=== PATIENT | male | born 1960 | race Two or more races ===

== ENCOUNTER 2020-03-02 14:09 | Outpatient (CLI) | payer MEDICARE, MEDICAID ==
[~2020-03-02] VITALS: Ht 167.6 cm; Wt 71.2 kg
[2020-03-02 14:21] VITALS: BP 134/80
--- NOTE | 2020-03-02 17:30 | Consultation ---
DATE OF CONSULTATION: 03/02/2020 CONSULTING PHYSICIAN: Fabio Barber MD REFERRING PHYSICIAN: Jonel Saleh MD REASON FOR REFERRAL: Screening colonoscopy, evaluation of also chronic GERD. PAST MEDICAL HISTORY: 1. GERD. 2. Hypercholesteremia. 3. BPH. 4. Hypertension. PAST SURGICAL HISTORY: Right wrist surgery and left leg surgeries. MEDICATIONS: Please see medication reconciliation list. FAMILY HISTORY: No family history of GI malignancies. SOCIAL HISTORY: Patient denies any tobacco, alcohol, or drug abuse. REVIEW OF SYSTEMS: A 10-point review of systems was performed and positive for chronic GERD. PHYSICAL EXAMINATION: VITAL SIGNS: Temperature 98.4, blood pressure 134/80, pulse 60, respirations 20. HEENT: Normocephalic, atraumatic. Sclerae anicteric. NECK: Supple. No evidence of obvious lymphadenopathy. CARDIOVASCULAR: Regular rate and rhythm. Plus S1-S2. LUNGS: Clear to auscultation bilaterally. ABDOMEN: Positive bowel sounds. Soft and nontender. No rebound. No guarding. No peritoneal sign. EXTREMITIES: No cyanosis, no clubbing, no edema. ASSESSMENT AND PLAN: This is a 59-year-old male with chronic GERD, also referral for screening colonoscopy. Plan for EGD and colonoscopy. Patient was informed of the risks and benefits of procedure. The prep was explained to him. We will schedule him for this month. I want to thank, Dr. Saleh for this kind referral. Fabio Barber M.D. DR: DEREK JOB#: [id number] CC: Jonel Saleh MD
== END 2020-03-02 16:09 | disposition home or self-care (01) ==
LOC: PAN 14:09
DX: K21.9 Gastro-esophageal reflux disease without esophagitis (principal); E78.00 Pure hypercholesterolemia, unspecified; I10 Essential (primary) hypertension
CPT/HCPCS: G0463

== ENCOUNTER 2020-05-25 13:27 | Outpatient (CLI) | payer MEDICARE, MEDICAID ==
[2020-05-25 13:35] VITALS: BP 143/82
--- NOTE | 2020-05-27 17:07 | General Progress Note ---
Subjective ROS Limited/Unobtainable: Yes Allergies: Coded Allergies: No Known Allergies (Unverified , 03/02/20) Objective General Appearance: alert EENT: normal ENT inspection Neck: supple Cardiovascular: normal rate Respiratory/Chest: decreased breath sounds Abdomen: normal bowel sounds, non tender, soft Extremities: non-tender Assessment/Plan Assessment/Plan: HP neg gastritis 4 colon polyps plan repeat colonoscopy in 3 years Fabio Barber MD May 27, 2020 17:07
== END 2020-05-25 15:27 | disposition home or self-care (01) ==
LOC: PAN 13:27
DX: K29.70 Gastritis, unspecified, without bleeding (principal); K63.5 Polyp of colon
CPT/HCPCS: 99212